=== PATIENT | female | born 1975 | race Caucasian/White ===

== ENCOUNTER 2019-06-08 07:58 | Emergency (ER) | payer BC, OTHER ==
[~2019-06-08] VITALS: Ht 167.6 cm; Wt 74.8 kg
[2019-06-08] MEDS ORDERED: KETOROLAC TROMETHAMINE 60 MG/2 ML VIAL IM ONE (09:00)
[2019-06-08] MEDS ORDERED: DIAZEPAM INJ 5 MG/ML 2 ML IV ONE (09:15)
[2019-06-08 09:27] LABS: BILIRUBIN,URINE NEGATIVE (NEGATIVE); CLARITY,URINE CLEAR (CLEAR); COLOR,URINE YELLOW (YELLOW); KETONES,URINE NEGATIVE (NEGATIVE); LEUKOCYTE ESTERASE ,URINE NEGATIVE (NEGATIVE); NITRITE,URINE NEGATIVE (NEGATIVE); PROTEIN,URINE DIPSTICK NEGATIVE (NEGATIVE); URINE UROBILINOGEN 0.2 mg/dL (0.2 - 1)
[2019-06-08] MEDS ORDERED: DIAZEPAM 5 MG TAB PO STA (09:28)
[2019-06-08 09:32] LABS: PREGNANCY TEST, URINE NEGATIVE (NEGATIVE)
[2019-06-08 09:42] LABS: BACTERIA,URINE FEW /HPF; EPITHELIAL CELLS,URINE FEW /LPF
--- NOTE | 2019-06-08 10:45 | Diagnostic Imaging Report ---
Exam: CT abdomen and pelvis Clinical history: Left flank pain Technique: Helical images of the abdomen and pelvis were obtained without contrast using the renal stone protocol DOSE REDUCTION: The exams was performed according to the departmental dose-optimization program which includes automated exposure control, adjustment of the mA and/or kV according to patient size and/or use of iterative reconstruction technique. Findings: The lung bases are clear. There is no evidence of pleural effusion. The cardiac size is within normal limits. The liver, gallbladder, spleen, pancreas, adrenal glands, and kidneys are unremarkable. No radiopaque stones are noted in bilateral renal collecting systems. The small and large bowels are normal in caliber without evidence of obstruction. Moderate retained feces are noted in the colon. The appendix was not clearly identified. However, no acute inflammatory changes are noted in the region of the cecum. The bladder, uterus, and ovaries are unremarkable. There is no evidence of lymphadenopathy or free fluid. The aorta and IVC are normal in caliber. Impression: 1. Moderate retained feces in the colon, otherwise, unremarkable CT abdomen and pelvis. Signed by: Dr. Juanpablo Garrido MD on 06/08/2019 10:42 AM
[2019-06-08] MEDS ORDERED: HYDROCODONE/APAP 5MG-325MG TAB PO ONE (11:00)
== END 2019-06-08 11:23 | disposition home or self-care (01) ==
LOC: ER 07:58
DX: M54.5 Low back pain (principal); M62.830 Muscle spasm of back
CPT/HCPCS: 74176; 81001; 81025; 99284; J1885